=== PATIENT | male | born 1955 | race Caucasian/White ===

== ENCOUNTER 2017-04-24 13:13 | Emergency (ER) | payer BC ==
[2017-04-24 13:25] VITALS: BP 174/100
[2017-04-24] MEDS ORDERED: CEPHALEXIN 250 MG CAPSULE PO STA (13:29)
--- NOTE | 2017-04-24 13:31 | ED Physician Documentation ---
History of Present Illness - Stated complaint Stated Complaint: L BIG TOE SWOLLEN - Chief complaint Chief Complaint: Ext Problem - Additonal information Additional information: hx from pt healthy 61 male had ingrown l great toenail partially removed by podiatry has another podiatry appy next week increased redness and swelling to the corner of the nail bed where the nail has already been removed thinks he needs an antibiotic Review of Systems Constitutional: denies: Fever Skin: reports: Rash Musculoskeletal: reports: Extremity pain Immunocompromised: denies: Immunocompromised PD PAST MEDICAL HISTORY - Present Medications Home Medications: Ambulatory Orders Medication Instructions Recorded Confirmed Cephalexin [Keflex] 500 mg PO Q6H #28 capsule 04/24/17 - Allergies Allergies/Adverse Reactions: Allergies Allergy/AdvReac Type Severity Reaction Status Date / Time No Known Drug Allergies Allergy Verified 04/24/17 13:25 PD ED PE NORMAL - Vitals Vital signs reviewed: Yes - Extremities Extremities: Other (L great toe with swelling and erythema to medial corner of distal toe, no streaking, MSV intact, no drainable abscess) Results - Vitals Vitals: Vital Signs - 24 hr 04/24/17 13:17 Temperature 37.1 C Heart Rate 70 Respiratory 18 Rate Blood Pressure 174/100 H O2 Saturation 98 Oxygen O2 Source Room air Departure - Departure Disposition: 01 Home, Self Care Clinical Impression: Ingrowing nail with infection Condition: Good Instructions: ED Toenail Ingrown Infec Abx Onl Prescriptions: Cephalexin [Keflex] 500 mg PO Q6H #28 capsule Comments: 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
[2017-04-24] MEDS ORDERED: CEPHALEXIN 250 MG CAPSULE PO ONE (13:38)
== END 2017-04-24 13:42 | disposition home or self-care (01) ==
LOC: ED 13:13
DX: L08.9 Local infection of the skin and subcutaneous tissue, unspecified (principal); L60.0 Ingrowing nail; R03.0 Elevated blood-pressure reading, without diagnosis of hypertension
CPT/HCPCS: 99283; A9270